=== PATIENT | male | born 1965 | race Caucasian/White ===

== ENCOUNTER 2019-12-30 08:12 | Outpatient (CLI) | payer OTHER, SELFPAY ==
--- NOTE | 2019-12-30 08:26 | XR_ITS ---
WS: [id number] LUMBAR SPINE: 3 VIEWS TECHNIQUE: AP, lateral and L5-S1 spot. HISTORY: BACK PAIN COMPARISON: None available. Lumbar vertebra are normally aligned. No loss of disc space or vertebral body height. Mild facet joint arthritis at L4-5 and L5-S1. Spina b ifida occulta L5. SI joints are symmetric bilaterally. No soft tissue abnormalities. Scattered plaque in aorta. XR/XR lumbar spine 2-3V* [id number] IMPRESSION: Very mild degenerative changes at the facet joints of L4-5 and L5-S1.
== END 2019-12-30 08:13 | disposition home or self-care (01) ==
LOC: RAD 08:21
PROVIDERS: PCP General Practice; Visit Provider Dermatology
DX: M54.9 Dorsalgia, unspecified (principal)
CPT/HCPCS: 72100

== ENCOUNTER 2020-11-23 12:40 | Emergency (ER) | payer OTHER, SELFPAY ==
[2020-11-23 12:47] VITALS: BP 167/123; PULSE 89; RESP 18; TEMP 36.8; O2SAT 98; BMI 29.0
--- NOTE | 2020-11-23 13:20 | ECG_ITS ---
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 Measurements Intervals [place] Rate: 86 P: 55 CO: 120 QRS: 16 QRSD: 89 T: 50 QT: 344 QTc: 412 Interpretive Statements SINUS RHYTHM No previous ECG available for comparison Electronically Signed On 11-23-2020 22:48:27 CDT by Minal Wild M.D. [id number]
--- NOTE | 2020-11-23 13:20 | XR_ITS ---
WS: [id number] Exam: XR chest 1V portable [id number] Date/Time of Exam: 11/23/2020 1:20 PM Reason For Exam: chest pain Comparison 01/17/2018. Findings: The lungs are clear and fully expanded. Costophrenic angles are sharp. No infiltrates. Bronchovascula r relief appears normal. Cardiac silhouette is unremarkable. Bony elements are intact. XR/XR chest 1V portable [id number] IMPRESSION: Unremarkable chest radiograph.
--- NOTE | 2020-11-23 13:50 | W.ED.CHESTPA ---
HPI - Chest Pain General: Chief Complaint: Chest Pain Stated Complaint: CHEST PAINS Time Seen by Provider: 11/23/20 13:20 History of Present Illness: HPI narrative: 55yo male present with complaints of chest pain that started last night. No radiation of the pain, was pain free at the time of arrival. He has not had any dyspnea or diaphoresis. He has not previously had any heart issues. Most of his pain has resolved from the episodes earlier today. MD complaint: chest pain Onset (ago): day(s) (1) Timing of current episode: episodic Prior episodes: No Onset: during rest Pain location: substernal Pain radiation: none Severity: moderate Quality: aching and heaviness Relieving factors: nothing Exacerbating factors: nothing Associated symptoms: Deny abdominal pain, diaphoresis, dyspnea, fever(s), leg edema, nausea, palpitations, sense of impending doom, syncope or vomiting Treatment prior to arrival: none Review of Systems Const: Denies: fever(s) or diaphoresis ENMT: Denies: throat pain, ear or mastoid pain, nasal discharge or nasal congestion Card: Denies: palpitations or syncope Resp: Denies: dyspnea GI: Denies: abdominal pain, nausea or vomiting : Denies: flank pain, dysuria, urinary frequency or urinary urgency Skin/Breast: Denies: rash or pruritus Physical Exam Const: COMMON NORMALS: no acute distress GENERAL APPEARANCE: cooperative and comfortable ORIENTATION/CONSCIOUSNESS: Yes awake, Yes oriented to person, Yes oriented to place and Yes oriented to time HENMT: COMMON NORMALS: normocephalic, atraumatic, hearing grossly normal bilaterally and external ears normal HEAD & SCALP: normocephalic and atraumatic EXTERNAL EAR: Yes external ears normal Neck/C-Spine: COMMON NORMALS: no JVD Resp: COMMON NORMALS: normal respiratory effort, No retractions, No use of accessory muscles and clear to auscultation bilaterally AUSCULTATION: clear to auscultation bilaterally Cardio: COMMON NORMALS: no JVD, regular rate, regular rhythm and No murmurs present (Cardio) RATE: regular rate RHYTHM: regular rhythm GI: COMMON NORMALS: Soft to palpation and No hepatosplenomegaly present AUSCULTATION: Yes normoactive bowel sounds PALPATION: Yes Soft to palpation, No Tenderness to palpation present (GI), No Guarding due to palpation present (GI) and Yes No hepatosplenomegaly present Extremity: COMMON NORMALS: normal to inspection, capillary refill normal, no clubbing, cyanosis or edema, no calf tenderness and no pedal edema Neuro: SENSORIUM/ORIENTATION: Yes oriented to person, Yes oriented to place and Yes oriented to time Skin: COMMON NORMALS: no rashes or lesions noted GENERAL SKIN EXAM: no rashes or lesions noted Course Vital Signs: Vital signs: Vital Signs Temperature 98.3 F 11/23/20 12:47 Pulse Rate 84 11/23/20 18:58 Respiratory Rate 18 11/23/20 18:58 Blood Pressure 133/93 11/23/20 18:58 Pulse Oximetry 98 11/23/20 18:58 MDM - Chest Pain MDM Narrative: Medical decision making narrative: Enzymes negative. Patient has had this for 24 hours. We will go ahead and start him on isosorbide mononitrate have him take aspirin daily Chem-7 a measure of his recurrence of symptoms recheck. We will set him up for an outpatient stress test. Lab Data: Labs: Lab Results 11/23/20 11/23/20 11/23/20 Range/Units 14:30 14:30 14:30 WBC 15.1 H (4.0-10.0) 10^3/ uL RBC 5.09 (4.1-5.3) 10^6/u L Hgb 15.8 (11.7-16.6) g/dL Hct 46.7 (42.0-52.0) % MCV 91.7 (80-94) fL MCH 31.0 (28.0-34.0) pg MCHC 33.8 (30.0-36.0) g/dL RDW 12.6 (12.1-15.1) % Plt Count 280 (130-400) 10^3/c mm MPV 8.8 (7.4-10.4) fL Neut % (Auto) 75.2 % Lymph % (Auto) 15.5 % Mitchell % (Auto) 6.6 % Eos % (Auto) 1.5 % Baso % (Auto) 0.9 % Neut # (Auto) 11.32 H (1.8-7.7) 10^3/u L Lymph # (Auto) 2.3 (0.8-4.8) 10^3/u L Mitchell # (Auto) 1.0 H (0.2-0.9) 10^3/u L Eos # (Auto) 0.2 (0.0-0.8) 10^3/u L Baso # (Auto) 0.1 (0.0-0.1) 10^3/u L Nucleated RBC % (a uto) 0 % Nucleated RBCs # 0.0 /100WBC Sodium 138 (136-145) mmol/L Potassium 3.9 (3.5-5.1) mmol/L Chloride 103 (98-107) mmol/L Carbon Dioxide 24 (22-29) mmol/L Anion Gap 14.9 (5-19) BUN 15 (6-20) mg/dL Creatinine 0.8 (0.7-1.2) mg/dL GFR Calculation 100.4 (90-130) mL/min Glucose 106 (65-115) mg/dL Calculated Osmolal ity 287 (285-295) mOsm/k g Calcium 8.7 (8.5-10.5) mg/dL Total Bilirubin 0.4 (0.15-1.2) mg/dL AST 11 (0-40) U/L ALT 12 (0-41) U/L Alkaline Phosphata se 78 (40-130) IU/L Troponin T Baselin e 6 (0-15) ng/L Troponin T 120 Min zay (0-15) ng/L Delta Troponin T (0-10) ABS# Total Protein 6.9 (6.6-8.7) g/dL Albumin 4.5 (3.5-5.2) g/dL Globulin 2.4 (1.3-4.6) g/dL 11/23/20 Range/Units 17:00 WBC (4.0-10.0) 10^3/ uL RBC (4.1-5.3) 10^6/u L Hgb (11.7-16.6) g/dL Hct (42.0-52.0) % MCV (80-94) fL MCH (28.0-34.0) pg MCHC (30.0-36.0) g/dL RDW (12.1-15.1) % Plt Count (130-400) 10^3/c mm MPV (7.4-10.4) fL Neut % (Auto) % Lymph % (Auto) % Mitchell % (Auto) % Eos % (Auto) % Baso % (Auto) % Neut # (Auto) (1.8-7.7) 10^3/u L Lymph # (Auto) (0.8-4.8) 10^3/u L Mitchell # (Auto) (0.2-0.9) 10^3/u L Eos # (Auto) (0.0-0.8) 10^3/u L Baso # (Auto) (0.0-0.1) 10^3/u L Nucleated RBC % (a uto) % Nucleated RBCs # /100WBC Sodium (136-145) mmol/L Potassium (3.5-5.1) mmol/L Chloride (98-107) mmol/L Carbon Dioxide (22-29) mmol/L Anion Gap (5-19) BUN (6-20) mg/dL Creatinine (0.7-1.2) mg/dL GFR Calculation (90-130) mL/min Glucose (65-115) mg/dL Calculated Osmolal ity (285-295) mOsm/k g Calcium (8.5-10.5) mg/dL Total Bilirubin (0.15-1.2) mg/dL AST (0-40) U/L ALT (0-41) U/L Alkaline Phosphata se (40-130) IU/L Troponin T Baselin e (0-15) ng/L Troponin T 120 Min zay 6.00 (0-15) ng/L Delta Troponin T 0 (0-10) ABS# Total Protein (6.6-8.7) g/dL Albumin (3.5-5.2) g/dL Globulin (1.3-4.6) g/dL Discharge Plan Discharge Patient Disposition: Home Clinical Impression: Atypical chest pain Condition: Stable Prescriptions: New aspirin 81 mg tablet,delayed release (DR/EC) 81 mg PO DAILY Qty: 30 RF: 0 isosorbide mononitrate 30 mg tablet extended release 24 hr 30 mg PO DAILY Qty: 20 RF: 0 nitroglycerin 0.4 mg tablet, sublingual 0.4 mg sublingual Q5M PRN (Reason: chest pain) Qty: 20 RF: 0 No Action Tylenol Extra Strength 500 mg Tablet 1,000 mg PO PRN RF: 0 Discharge Orders: Discharge ED (Routine); Ordered 11/23/20 Ordered By: Mustapha Sánchez Referrals: Saw Cheung MD [Primary Care Provider] - Patient Instructions: Opioid Safety Coding Level of Care Code ED Delineator for Anyig Fwd Exam Comprehensive
[2020-11-23 14:40] LABS: Basophils # 0.1 10^3/uL (0.0-0.1); Basophils % 0.9 %; Eosinophils # 0.2 10^3/uL (0.0-0.8); Eosinophils % 1.5 %; Hematocrit 46.7 % (42.0-52.0); Hemoglobin 15.8 g/dL (11.7-16.6); Lymphocytes # 2.3 10^3/uL (0.8-4.8); Lymphocytes % 15.5 %; Mean Corpuscular HGB Conc 33.8 g/dL (30.0-36.0); Mean Corpuscular Volume 91.7 fL (80-94); Mean Platelet Volume 8.8 fL (7.4-10.4); Monocytes % 6.6 %; Neutrophils # 11.32 10^3/uL (1.8-7.7); Neutrophils % 75.2 %; Nucleated Red Blood Cells % 0 %; Platelet Count 280 10^3/cmm (130-400); Red Blood Count 5.09 10^6/uL (4.1-5.3); Red Cell Distribution Width 12.6 % (12.1-15.1); White Blood Count 15.1 10^3/uL (4.0-10.0)
[2020-11-23 15:07] LABS: Troponin(5th) Baseline 6 ng/L (0-15)
[2020-11-23 15:08] LABS: Alanine Aminotransferase 12 U/L (0-41); Albumin Level 4.5 g/dL (3.5-5.2); Alkaline Phosphatase 78 IU/L (40-130); Anion Gap 14.9 (5-19); Aspartate Amino Transferase 11 U/L (0-40); Blood Urea Nitrogen 15 mg/dL (6-20); Calcium 8.7 mg/dL (8.5-10.5); Carbon Dioxide 24 mmol/L (22-29); Chloride 103 mmol/L (98-107); Globulin 2.4 g/dL (1.3-4.6); Glomerular Filtration Rate 100.4 mL/min (90-130); Glucose 106 mg/dL (65-115); Osmolality Calculated 287 mOsm/kg (285-295); Potassium 3.9 mmol/L (3.5-5.1); Sodium 138 mmol/L (136-145); Total Bilirubin 0.4 mg/dL (0.15-1.2); Total Protein 6.9 g/dL (6.6-8.7)
--- NOTE | 2020-11-23 15:48 | PC.NURSE ---
Chest pain Patient states that there is no chest pain currently; however, upon movement the pain reoccurs.
[2020-11-23 15:50] VITALS: BP 145/88; PULSE 84; RESP 16
--- NOTE | 2020-11-23 16:56 | PC.NURSE ---
Chest Pain Patient states chest pain absent when still, returns upon movement at a rate of 4 out of ten on a 0-10 scale.
[2020-11-23 17:01] VITALS: BP 139/106; PULSE 83; RESP 17
[2020-11-23 17:34] LABS: Troponin 5 2HR Delta 0 ABS# (0-10)
--- NOTE | 2020-11-23 18:13 | PC.NURSE ---
Chest Pain patient states chest pain is at a tolerable level, it is not as intense as upon arrival.
[2020-11-23 18:14] VITALS: BP 133/93; PULSE 84; RESP 17
[2020-11-23 18:58] VITALS: BP 133/93; PULSE 84; RESP 18; O2SAT 98
--- NOTE | 2020-11-23 19:20 | ECG_ITS ---
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 Measurements Intervals [place] Rate: 79 P: 58 CT: 151 QRS: 18 QRSD: 96 T: 49 QT: 346 QTc: 398 Interpretive Statements SINUS RHYTHM No previous ECG available for comparison Electronically Signed On 11-23-2020 22:55:43 CDT by Minal Wild M.D. [id number]
--- NOTE | 2020-11-30 06:59 | DCPLANNER ---
business relations manager had message to schedule an outpatient stress test for patient. business relations manager spoke with patient and confirmed that patient did want the stress test and that his primary care physician was Dr. Mccarthy. business relations manager faxed signed order to centralized scheduling, will call for appointment information.
--- NOTE | 2020-12-18 07:29 | DCPLANNER ---
Patient had a stress test scheduled and the test was cancelled.
== END 2020-11-23 18:59 | disposition home or self-care (01) ==
PROVIDERS: Emergency Provider Family Medicine; PCP General Practice
DX: R07.89 Other chest pain (principal)
CPT/HCPCS: 36415; 71045; 80053; 84484; 85025; 93005; 99283